=== PATIENT | male | born 1945 | race Caucasian/White ===

== ENCOUNTER 2018-10-23 11:20 | Inpatient (IN) | payer MEDICARE ==
[~2018-10-23] VITALS: Ht 170.2 cm; Wt 88.0 kg
[2018-10-23] MEDS ORDERED: AMLODIPINE5 MG PO (13:11)
[2018-10-23] MEDS ORDERED: CARVEDILOL25 MG PO (13:12)
[2018-10-23] MEDS ORDERED: CLOPIDOGREL75 MG PO (13:12)
[2018-10-23] MEDS ORDERED: B-12500 MC1 PO (13:13)
[2018-10-23] MEDS ORDERED: LISINOPRIL20 M1 PO (13:13)
[2018-10-23] MEDS ORDERED: VITAMIN D32000 UNIT PO (13:13)
[2018-10-23] MEDS ORDERED: LIPITOR20 M1 PO (13:14)
[2018-10-23] MEDS ORDERED: TYLENOL 8 HOUR650 MG (13:15)
[2018-10-23] MEDS ORDERED: NITROGLYCERIN0.4 MG (13:15)
[2018-11-02] VITALS (10 sets, daily range): BP systolic 141–177; BP diastolic 61–91
--- NOTE | 2018-11-02 11:56 | NUR ---
PT ARRIVED TO FLOOR VIA HOSPITAL BED IN STABLE CONDITION ACCOMPANIED BY OR STAFF MEMBER;PT ALERT AND ORIENTED, DROWSY AT THIS TIME;ORIENTED PT TO ROOM AND CALL LIGHT SYSTEM;PT IS POST OP LEFT TOTAL HIP ARTHRROPLASTY 11/02/18;VS OBTAINED AND ASSESSMENT COMPLETED;RESPIRATIONS EVEN AND UNLABORED ON O2 @ 2L VIA NC, CLEAR/DIMINISHED LUNG SOUNDS NOTED;SPOUSE TO BRING IN HOME CPAP;I.S. PROVIDED AND PT EDUCATED ON USE 10X PER HOUR;ABDOMEN DISTENDED/SOFT ON PALPATION AND ACTIVE IN ALL 4 QUADRANTS, LAST BM 11/02/18;STRONG PEDAL PULSES;LEFT HIP DRESSINGS CDI AND ICE PACKS PROVIDED;WEDGE PILLOW IN PLACE AND CAP REFILL LESS THAN 3 SECONDS;#22G TO LEFT FOREARM INFUSING LR @ 100ML/HR,SITE APPEARS HEALTHY;PT DENIES ANY CURRENT PAIN BUT DOES REPORT NAUSEA.PT TO BE MEDICATED WITH ZOFRAN 4MG IVP, PAIN SCALE AND REPORTING EDUCATED;PT DENIES ANY CURRENT NEEDS AT THIS TIME;FRESH WATER PROVIDED AND PT ENCOURAGED TO CALL FOR ASSISTANCE IF NEEDED;FALL PRECAUTIONS IN PLACE WITH CALL LIGHT IN REACH;WILL CONTINUE TO MONITOR
--- NOTE | 2018-11-02 16:30 | NUR ---
PT RESTING IN SEMI FOWLERS POSITION;RESPIRATIONS EVEN AND UNLABORED ON O2 @2L VIA NC;PT REPORTS MINIMAL PAIN TO LEFT HIP;PT REQUESTS TO AMBULATE WITH ASSISTANCE, PT AMBULATED NEXT TO BEDSIDE AND VOIDED 50CC OF CLEAR/YELLOW URINE INTO URINAL;PT RE-POSITIONED INTO RECLINER;IV FLUIDS CONTINUE TO INFUSE TO LFA WITH EASE;PT DENIES ANY ADDITIONAL NEEDS AT THIS TIME AND IS ENCOURAGED TO CALL FOR ASSISTANCE IF NEEDED;FALL PRECAUTIONS IN PLACE WITH CALL LIGHT IN REACH;WILL CONTINUE TO MONITOR
--- NOTE | 2018-11-02 16:53 | NUR ---
PHYSICAL THERAPY WORKING WITH PT.
--- NOTE | 2018-11-02 17:00 | NUR ---
PT HYPERTENSIVE WITH CURRENT BP 177/83 HR 75, ASYMPTOMATIC AT THIS TIME. NOTIFIED AND NO NEW ORDERS RECEIVED STATING "JUST LET HIM REST AND GIVE HIM PAIN MEDICATION IF HE IS HURTING";WILL CONTINUE TO MONITOR
--- NOTE | 2018-11-02 19:00 | NUR ---
RECEIVED REPORT FROM DAY NURSE. PT RESTING IN BED. NO NEEDS AT THIS TIME. CALL ANTUNEZ IN REACH. WILL CONTINUE TO MONITOR.
--- NOTE | 2018-11-02 20:42 | NUR ---
PT RESTING IN BED WATCHING TV. PT C/O 5/10 PAIN TO LEFT HIP, ALSO COMPLAINING OF SORE THROAT; EXPLAINED THAT HIS THROAT WOULD BE IRRITATED AFTER SURGERY PT VERBALIZES UNDERSTANDING, PROVIDED ICE CHIPS. PT STANDS WITH 1 ASSIST TO USE URINAL VOIDED CLEAR YELLOW URINE. PT AMBULATES TO NEARBY RECLINER. ASSESMENT COMPLETED A THTIS TIME. ABD IS DISTENDED AND FIRM. DRESSING TO HIP IS CDI, WEDGE BETWEEN LEGS AT THIS TIME. NO OTHER NEEDS AT THIS TIME. CALL ANTUNEZ IN REACH. WILL CONTINUE TO MONITOR.
--- NOTE | 2018-11-03 | NUR ---
PT RESTING IN CHAIR AT THIS TIME NO S/S OF DISTRESS NOTED. CALL ANTUNEZ IN REACH. WILL CONTINUE TO MONITOR.
--- NOTE | 2018-11-03 04:00 | NUR ---
PT SITTING ON THE EDGE OF THE BED. NO NEEDS A THIS TIME. CALL ANTUNEZ IN REACH. WILL CONTINUE TO MONITOR.
[2018-11-03 04:45] VITALS: BP 136/70
[2018-11-03 05:40] LABS: HEMATOCRIT 39.5 % (39.0-50.0); HEMOGLOBIN 13.1 g/dl (14.0-18.0)
[2018-11-03 07:43] VITALS: BP 155/74
--- NOTE | 2018-11-03 07:51 | NUR ---
FOUND PT WALKING IN THE ROOM WITH WEDGE PILLOW IN PLACE. ASSISTED PT TO SIT IN RECLINER WEDGE PILLOW WAS REMOVED. SAFETY PRECAUTIONS REINFORCED. PT VERBALIZED UNDERSTANDING. ASSESSMENT DONE. PT IS A&O X3. PT STATED PAIN IN HIP 5/10 MEDICATED PT WITH PERCOCET SEE EMAR. DRESSING IN LEFT HIP CDI. IVF INFUSING WELL. PT DENIES ANY OTHER NEEDS AT THIS TIME. CALL LIGHT IN REACH.
--- NOTE | 2018-11-03 10:55 | NUR ---
AND I ASSISTED PT TO USE THE URINAL. PT IS CONFUSE STATING HE WANT TO GET UP AND GO TO THE LIVING ROOM. ORIENT PT. WE ASSISTED PT BACK TO THE RECLINER. IN ROOM. CALL LIGHT IN REACH.
[2018-11-03 11:17] VITALS: BP 107/60
--- NOTE | 2018-11-03 11:46 | NUR ---
PT IS SITTING IN RECLINER EATING HIS LUNCH WITH NO S/S OF DISTRESS NOTED. IN ROOM. PT STATED PAIN IS 3/10 IN HIP AND DENIES PAIN MEDICATION. CALL LIGHT IN REACH.
--- NOTE | 2018-11-03 12:32 | NUR ---
SPOKE WITH NSG, WHO REPORTS PATIENT IS NOT CALLING FOR ASSISTANCE, FOLLOWING HIP PRECAUTIONS AND ATTEMPTING TO GET OOB BY HIMSELF. HE IS UP IN CHAIR WITH HIS PRESENT. VERBALLY AND VISUALLY REVIEWING HIP PRECAUTIONS AND IMPORTANCE OF CALLING FOR ASSISTANCE. PATIENT IS UNABLE TO KEEP HIS EYES OPEN OR REPEAT HIS INSTRUCTIONS. HE IS CONFUSED, ASKING WHO IS TALKING TO HIM, WHEN HE HEARS VOICES OUT IN THE [place]. NOT APPROPRIATELY ALERT FOR TX AT THIS TIME. HE STATES HE WAS NOT ABLE TO SLEEP ALL NIGHT. HIS STATES THAT IT WAS BECAUSE OF HIS ABDUCTOR PILLOW. WILL F/U AGAIN LATER IN THE AFTERNOON.
--- NOTE | 2018-11-03 13:45 | NUR ---
NOTIFIED DR. VASQUEZ THAT OLIVAS WAS PLACE BUT THERE IS BLOODY RED URINE NOTED. NO NEW ORDERS RECEIVED AT THIS TIME.
--- NOTE | 2018-11-03 15:00 | NUR ---
DR. VASQUEZ SPOKE WITH DR. SINGH FOR SURGERY FOR PT TOMORROW.
[2018-11-03 15:56] VITALS: BP 156/78
--- NOTE | 2018-11-03 16:12 | NUR ---
Patient seen this PM for gait training, gait belt applied prior to. Hip precautions reviewed, patient verbalized understanding. Sit to stand to walker from BSC done with verbal cues for UE push off from arm rest. Steady static standing balance is noted. Patient ambulated with step to gait pattern x 15 feet using standard walker and with CGA x 2. Verbal cues given for safety awareness and proper use of standard walker. Stand to sit to supine in bed done with mod. assist x 2 for bringing LE's up to bed and upper trunk control. HOB elevated, abduction pillow in place and call light reviewed and left in lap. Patient left resting comfortably in bed without questions or concerns.
--- NOTE | 2018-11-03 16:33 | NUR ---
NS IRRIGATION DONE ON OLIVAS PER ORDER. TWO MODREATED BLOOD CLOTS NOTED. PT PT TOLERATED WELL. BED ALARM IN PLACE FOR SAFETY. NOTIFIED DR. VASQUEZ RE:BLOOD CLOTS. NO NEW ORDERS RECEIVED AT THIS TIME.
[2018-11-03 19:30] VITALS: BP 118/66
--- NOTE | 2018-11-03 20:15 | NUR ---
RECEIVED A PHONE CALL FROM RADIOLOGIST FOR CT SCAN REPORTING THAT OLIVAS CATHETER BALLOON WAS IN THE URETHERA AND NEEDED TO BE REPOSITIONED. UPON ENTERING THE ROOM PT WAS IN RECLINER W/AIDE AT SIDE OBTAINING V/S. PT APPEARS SOMEWHAT AGITATED AND PULLING AT CATHETER. AIDE AND MYSELF INSTRUCTED THE PT TO STOP PULLING ON CATHETER. PT POSITIONED FOR OLIVAS CATHETER ACCESS AND BALLOON DEFLATED, CATHETER POSITIONED FOR PROPER BALLOON PLACEMENT AND REINFLATED. BLOODY URINE W/CLOTS DRAINED FROM CATHETER INSERTION SITE AND OBVIOUS CLOTS IN CATHETER DRAINAGE TUBE. CATHETER FLUSHED WITH LARGE BLOODY CLOTS REMOVED. WILL CONTINUE TO MONITOR CLOSELY.
--- NOTE | 2018-11-03 21:00 | NUR ---
PT ASSESSED AND MEDICATED ORDERS PROVIDE. ABD IS VERY DISTENDED AND CATHETER NOT DRAINING. ATTEMPTED TO FLUSH CATHETER BUT WAS UNABLE TO GET RETURN. BLADDER SCAN SHOWED 854CC. ADDITIONAL ATTEMPTS WERE MADE TO FLUSH WITH SOME RETURN AND BLOOD CLOTS IN ADDITION. CATHETER STILL APPEARS NOT TO BE DRAINING. AGAIN BLADDER SCANNED @564CC AND ABD DISTENDED. PT C/O PAIN. PHYSICIAN WILL BE NOTIFIED FOR ORDERS.
--- NOTE | 2018-11-03 21:45 | NUR ---
NOTIFIED DR. VASQUEZ OF CLOTS IN CATHETER. ORDERS RECEIVED FOR OLIVAS REMOVAL AND PLACEMENT OF THREE WAY CATHETER AND CBI STARTED. OLIVAS CATHETER REMOVED AND ATTEMPTS FOR THREE WAY CATHETER PLACEMENT UNSUCCESSFUL, WILL CALL FOR ASSISTANCE FROM ICU NURSE.
--- NOTE | 2018-11-03 23:45 | NUR ---
ICU NURSE WAS ABLE TO INSERT THREE WAY CATHETER, BUT CATHETER NOT DRAINING AND FLUSHES ARE UNSUCCESSFUL. NOTIFIED WHO INSTRUCTED CONSUMER LOAN UNDERWRITER TO CALL DR. PERALTA. UPON RECEIPT OF ORDERS FROM DR. PERALTA 20FR SILICON CATHETER WAS PLACED "TO DRAIN." CATHETER APPEARS TO BE DRAINING CLOUDY YELLOW URINE AT A SOW RATE. WILL CONTINUE TO MONITOR FOR OUTPUT.
[2018-11-04] VITALS (11 sets, daily range): BP systolic 96–161; BP diastolic 47–86
--- NOTE | 2018-11-04 01:45 | NUR ---
CATHETER IS DRAINING CLOUDY YELLOW URINE SLOWLY AT THIS TIME. PT IS RESTING IN BED W/BED ALARM ON AND AIDE AT PT SIDE FOR OBSERVATION. PT HAS BEEN VERY AGITATED, CONFUSED, TRYING TO GET OUT OF BED AND ATTEMPTING TO PULL ON CATHETER.
--- NOTE | 2018-11-04 02:10 | NUR ---
CATHETER BAG EMPTIED OF 275CC OF LIGHT YELLOW URINE. PT APPEARS MILDLY AGITATED, AIDE AT BEDSIDE.
--- NOTE | 2018-11-04 05:05 | NUR ---
AIDE AT BEDSIDE W/PT, PT IN RECLINER AT THIS TIME. AIDE IS CHANGING BEDDING. PT HAS BEEN CLEANED AND PROVIDED JENAE/CATHETER CARE AT THIS TIME. OLIVAS CATHETER EMPTIED OF 100CC OF DARK YELLOW URINE.
--- NOTE | 2018-11-04 05:23 | NUR ---
PT IS SLEEPING AT THIS TIME. BED ALARM ON.
[2018-11-04 05:45] LABS: HEMATOCRIT 36.8 % (39.0-50.0); HEMOGLOBIN 11.8 g/dl (14.0-18.0); IMMATURE GRANULOCYTES 0.4 % (0.0-5.0); MEAN CORPUSCULAR HGB 28.9 pG CALC (26.0-32.0); MEAN CORPUSCULAR HGB CONC 32.1 g/L CALC (32.0-36.0); NEUT# 8.48 thou/uL (1.82-7.42); RED BLOOD COUNT 4.09 mill/uL (4.70-6.10); RED CELL DISTRI WIDTH 14.2 % (11.5-15.5)
[2018-11-04 06:06] LABS: ALBUMIN 3.2 g/dL (3.2-5.0); ALKALINE PHOSPHATASE 47 u/l (38-126); ANION GAP 14 (6-22 (CALC)); BILIRUBIN, TOTAL 0.7 mg/dL (0.0-1.4); BUN 31 mg/dL (8-23); BUN/CREATININE RATIO 19 (12-20 (CALC)); CARBON DIOXIDE 22 mmol/l (22-30); CHLORIDE 103 mmol/l (95-108); CREATININE 1.6 mg/dL (0.7-1.3); GFR 43 ML/MIN (>=60 (CALC)); GFR FOR AFR.AMER. 52 ML/MIN (>=60 (CALC)); LIPASE 14 u/l (23-300); MAGNESIUM 1.9 mg/dL (1.6-2.3); POTASSIUM 4.5 mmol/l (3.5-5.1); SGOT/AST 34 u/l (19-48); SODIUM 134 mmol/l (137-146); TOTAL PROTEIN 5.4 g/dL (6.3-8.2)
[2018-11-04 06:12] LABS: AMYLASE < 30 u/l (30-110)
--- NOTE | 2018-11-04 08:21 | NUR ---
REPORT WAS RECEIVED BY FROM HELENA. PT IS SITTING IN RECLINER. ASSESSMENT DONE. PT IS A&O X3 AT THIS TIME. PT STATED PAIN IN HIP 3/ BUT DENIES PAIN MEDICATION AT THIS TIME. DRESSING IN LEFT HIP CDI. OLIVAS IS PATENT WITH YELLOW URINE NOTED. PT SIGN CONSENT FOR SURGERY AND IN ROOM. CALL LIGHT IN REACH.
--- NOTE | 2018-11-04 10:58 | NUR ---
NOTIFIED RE: PT TEMP OF 100.1 AND THAT I DID NOT GAVE PT BP MEDS DUE TO BP OF 96/56. NO NEW ORDERS RECEIVED AT THIS TIME.
--- NOTE | 2018-11-04 11:40 | NUR ---
PT IS SLEEPING IN RECLINER WITH NO S/S OF DISTRESS NOTED. BED ALARM IN PLACE FOR SAFETY. CALL LIGHT IN REACH.
--- NOTE | 2018-11-04 12:43 | NUR ---
PATIENT IS UP IN RECLINER WITH AT SIDE. HE IS ALERT AND ORIENTED TODAY. RECLINE TO SIT INDEP. SIT TO STAND WITH MIN A TO WALKER. PATIENT AMB WITH STEP TO GAIT PATTERN AND V.C'S FOR PROPER SEQUENCE AND MAINTAINING FABIO IN WALKER. HE WAS ABLE TO AMB 75 FEET WITH SBA. ENCOURAGED TO TURN TO RIGHT TO MAINTAIN HIP PRECAUTIONS, WHICH WERE REVIEWED. PATIENT DEMONSTRATES GOOD UNDERSTANDING OF SAME. STAND TO SIT WITH V.C.'S TO MAINTAIN PRECAUTIONS. RECLINED IN CHAIR WITH PILLOW FOR ABDUCTION. CHAIR ALARM REPLACED, CALL ANTUNZE AND TRAY TABLE IN REACH. TOLERATED WELL. PATIENT IS IN AGREEMENT FOR SHORT TERM REHAB. HE IS SCHEDULED FOR CYSTOSCOPY THIS AFTERNOON.
--- NOTE | 2018-11-04 14:07 | NUR ---
Pt seen this pm for treatment. Nursing reported he was NPO awaiting a procedure. Pt agreed to treatment. LLE A/AAROM ex performed in recliner, reclined and sitting x 20 reps each within JAMEY guidelines. Pt hip precautions reviewed. Pt moved sit to and from stand with CGA/min assist. He ambulated x 100' 1/2 with standard walker and 1/2 with RW. Pt gait pattern much improved with RW. Verbal instructions with gait pattern required. Pt was left in chair with , who stated she would put alarm on and do any set up reequired. .
--- NOTE | 2018-11-04 14:35 | NUR ---
PT IS SITTING IN THE SIDE OF THE BED. X2 PERSON ASSISTED PT TO THE STRETCHER. PT WENT TO OR VIA STRETCHER BY JEWEL DODD.
--- NOTE | 2018-11-04 17:40 | NUR ---
PT CAME FROM OR VIA STRETCHER. REPORT RECEIVED FROM STEPH. PT DENIES PAIN AT THIS TIME. CBI INFUING WELL WITH PEACH COLOR AND NO BLOOD CLOTS NOTED IN OLIVAS. PT DENIES ANY NEEDS AT THIS TIME. CALL LIGHT IN REACH AND BED ALARM IN PLACE FOR SAFETY.
--- NOTE | 2018-11-04 19:00 | NUR ---
REPORT RECIEVED FROM JEWEL PALMER. PT RESTING IN BED. ALERT AND ORIENTED. RESPIRATIONS EVEN AND UNLABORED. PT REPORT HAVING PAIN OF A 5 OUT OF 10, TO BE MEDICATED. SAFETY PRECAUTIONS IN PLACE. WILL CONTINUE TO MONITOR.
--- NOTE | 2018-11-04 23:50 | NUR ---
PT FOUND SITTING NAKED ON THE FLOOR, BED ALARM ATTACHED TO GOWN. PT STATES " I SLID OUT OF BED". WRITTER CALLED FOR ASSISTANCE. PT X4 ASSIST BACK INTO BED. NO NEW INJURIES NOTED. PT STATED " I WAS DREAMING ABOUT GETTING OUT OF BED AND SLID DOWN TO THE FLOOR". WRITTER ASKED PT IF HE SLID QUICKLY OR SLOWLY TO THE FLOOR PT REPLIED "SLOWLY". PT DENIES ANY NEW PAIN. VS OBTAINED. TO BE NOTIFIED. JOB SERVICE CONSULTANT [place] TO BE NOTIFIED. SAFETY PRECAUTIONS IN PLACE WILL CONTINUE TO MONITOR.
[2018-11-05] VITALS (7 sets, daily range): BP systolic 101–150; BP diastolic 56–66
--- NOTE | 2018-11-05 00:05 | NUR ---
DR VASQUEZ NOTIFIED ABOUT PT BEING FOUND ON FLOOR. NEW ORDERS FOR ONE ON ONE SITTER OBTAINED.
[2018-11-05 06:18] LABS: ALBUMIN 2.8 g/dL (3.2-5.0); BUN 22 mg/dL (8-23); CARBON DIOXIDE 24 mmol/l (22-30); CHLORIDE 109 mmol/l (95-108); CREATININE 0.9 mg/dL (0.7-1.3); GFR > 60 ML/MIN (>=60 (CALC)); GFR FOR AFR.AMER. > 60 ML/MIN (>=60 (CALC)); POTASSIUM 3.8 mmol/l (3.5-5.1)
[2018-11-05 06:19] LABS: SODIUM 141 mmol/l (137-146)
--- NOTE | 2018-11-05 07:05 | NUR ---
REPORT RECEIVED FROM JEWEL BARAKAT;PT APPEARS TO BE SLEEPING IN SEMI FOWLERS POSITION WITH DELORIS SUMNER AT BEDSIDE SITTER;RESPIRATIONS EVEN AND UNLABORED ON O2 @ 2L VIA NC;NO S/S OF DISTRESS NOTED;CBI INFUSING WITH EASE, CURRENTLY ON BAG #5.OUTPUT PEACH/CLEAR IN COLOR;IV FLUIDS INFUSING TO LFA;FALL PRECAUTIONS NOTED WITH BED IN THE LOWEST POSITION AND CALL LIGHT IN REACH;WILL CONTINUE TO MONITOR
--- NOTE | 2018-11-05 08:35 | NUR ---
PT RESTING IN SEMI FOWLERS POSITION WITH SPOUSE AT BEDSIDE;ALERT AND ORIENTED X2, DROWSY AND RESTLESS;PT ATTEMPTING MULTIPLE TIMES TO GET OUT OF BED, ATTEMPTED TO RE-ORIENT PATIENT AND RE-POSITION FOR COMFORT;VS OBTAINED AND ASSESSMENT COMPLETED;RESPIRATIONS SHALLOW ON RA, I.S. AT BEDSIDE AND EDUCATED ON USE 10X PER HOUR;ABDOMEN DISTENDED/FIRM ON PALPATION AND HYPERACTIVE IN ALL 4 QUADRANTS;STRONG PEDAL PULSES, SCD'S IN PLACE;PT IS POST OP DAY #3 LEFT TOTAL HIP ARTHROPLASTY, INCISIONAL SITE WELL APPROX WITH SLIGHT REDDNESS NOTED;CBI INFUSING AT A TITRATED RATE WITH EASE CURRENTLY ON BAG #5, OUTPUT RED/PEACH AT THIS TIME.SCROTUM SLIGHTLY EDEMATOUS.LEG STRAP IN PLACE;#20G TO LEFT FOREARM INFUSING NS @ 125ML/HR,SITE APPEARS HEALTHY;PHYSICAL THERAPY TO HELP PT OUT OF BED AND INTO RECLINER PER REQUEST;PO FLUIDS ENCOURAGED;FALL PRECAUTIONS IN PLACE WITH BED ALARM ON FOR SAFETY;CALL LIGHT IN REACH;WILL CONTINUE TO MONITOR
[2018-11-05 08:51] LABS: HEMATOCRIT 32.4 % (39.0-50.0); HEMOGLOBIN 10.5 g/dl (14.0-18.0)
--- NOTE | 2018-11-05 09:00 | NUR ---
PHYSICAL THERAPY WORKING WITH PT TO RE-POSITION INTO RECLINER.
--- NOTE | 2018-11-05 11:18 | NUR ---
PT OOB RESTING IN RECLINER WITH SPOUSE AND AT BEDSIDE DISCUSSING POC;RESPIRATIONS EVEN AND UNLABORED,SHALLOW ON RA;PT DENIES ANY CURRENT PAIN OR NEEDS;CBI INFUSING WITH EASE WITH PEACH OUTPUT NOTED, REMAINS ON BAG #5;IV SITE PATENT TO LEFT FOREARM;PT DENIES ANY ADDITIONAL NEEDS AT THIS TIME;FALL PRECAUTIONS IN PLACE WITH BED ALARM ON FOR SAFETY;CALL LIGHT IN REACH;WILL CONTINUE TO MONITOR
--- NOTE | 2018-11-05 12:24 | NUR ---
CBI DISCONTINUED AT THIS TIME PER ORDER.URINE PEACH/CLEAR IN COLOR AT THIS TIME.
--- NOTE | 2018-11-05 15:13 | NUR ---
Patient found resting in recliner, when questioned he denies hip pain. Patient in agreement to participate in gait training. Sit to stand to RW done with light CGA x1 and verbal cues for UE push off from arm rests. Patient ambulated 2 x [address] using RW and with CGA x1. Patient demonstrated short step on left and is slow and steady. Verbal cues also provided for pursed lip breathing technique. Upon returning to recliner patient remembered to reach back for armrest to slowly lower. LE's elevated in recliner. Patient was without questions or concerns, no SOB. Call light reviewed and left within reach.
--- NOTE | 2018-11-05 15:26 | NUR ---
PT APPEARS TO BE SLEEPING IN RECLINER WITH SPOUSE AT BEDSIDE;RESPIRATIONS EVEN AND UNLABORED ON RA;NO S/S OF DISTRESS NOTED;OLIVAS CATHETER PATENT DRAINING RED/CLEAR OUTPUT AFTER AMBULATION WITH PHYSICAL THERAPY;IV SITE TO LEFT FOREARM PATENT;ALL SAFETY PRECAUTIONS REMAIN IN PLACE WITH BED ALARM ON FOR SAFETY;CALL LIGHT IN REACH;WILL CONTINUE TO MONITOR
--- NOTE | 2018-11-05 19:00 | NUR ---
REPORT RECEIVED FROM ZOILA ALEXANDER. PT RESTING IN RECLINER AT BEDSIDE. OLIVAS IN PLACE DRAINING TO GRAVITY. PT REFUSING TO USE THE CALL ANTUNEZ FOR ASSISTANCE. PT REPEATEDLY SETTING BED ALARM OFF GETTING UP TO BSC. SAFETY PRECAUTIONS IN PLACE, WILL CONTINUE TO MONITOR.
--- NOTE | 2018-11-05 19:30 | NUR ---
PT ASKED FOR ASSISTANCE GETTING HER ON THE BSC. WRITTER ASSISTED PT TO BSC AND CHANGED SOILED LINEN. PT AND DENIED FURTHER NEEDS AT THIS TIME. SAFETY PRECAUTIONS IN PLACE. WILL CONTINUE TO MONITOR.
--- NOTE | 2018-11-05 23:13 | NUR ---
PT RESTING IN RECLINER AT BEDSIDE. BIPAP IN PLACE. OLIVAS DRAINING TO GRAVITY. SAFETY PRECAUTIONS IN PLACE. WILL CONTINUE TO MONITOR.
--- NOTE | 2018-11-06 00:40 | NUR ---
PT IN NEED OF ASSISTANCE TO BSC. ZOILA MONTEJO AND CORRINE WENT IN TO ASSIST PT. WHEN TRYING TO ASSIST PT HE YELLED AT WRITTER " DON'T TOUCH ME".NIKIA ASSISTED PT TO BSC. PT YELLED "WHY ARE YOU IN HERE, [facility] IS A [facility]!" NIKIA ASKED PT IF HE KNEW WHERE HE WAS PT ANSWERED " [facility]" WHEN CORRINE ASKED WHAT THE PT DIDN'T LIKE ABOUT THE CARE HE WAS RECEIVING, PT YELLED AT WRITTER " DON'T TALK TO ME, I'M NOT TALKING TO YOU" NIKIA OFFERED TO GET THE TITRATOR FOR PT, HE REPLIED " I DON'T WANT TO TALK TO THE TITRATOR" PT ASKED " WHAT IF I WANTED TO LEAVE" PT EDUCATED AT THIS TIME.
--- NOTE | 2018-11-06 00:55 | NUR ---
PT REPORTS HAVING PAIN WHEN BRINGING HIM HIS PAIN MEDICATION PT STATES " I DON'T WANT ANYTHING FROM YOU!" ZOILA MONTEJO IN THE DOORWAY ASKED PT IF WANTED HER TO GIVE HIM THE MEDICATION PT STATEED HE PREFERRED HER TO GIVE THE MEDICATION.
--- NOTE | 2018-11-06 04:36 | NUR ---
PT RESTING IN RECLINER. NO SIGNS OR SYMPTOMS OF DISTRESS AT THIS TIME. WILL CONTINUE TO MONITOR.
[2018-11-06 05:33] VITALS: BP 123/61
[2018-11-06 05:34] LABS: HEMATOCRIT 33.1 % (39.0-50.0); HEMOGLOBIN 10.6 g/dl (14.0-18.0); IMMATURE GRANULOCYTES 1.6 % (0.0-5.0); MEAN CELL VOLUME 91.9 fL CALC (80.0-100.0); MEAN CORPUSCULAR HGB 29.4 pG CALC (26.0-32.0); RED BLOOD COUNT 3.6 mill/uL (4.70-6.10); RED CELL DISTRI WIDTH 14.6 % (11.5-15.5)
[2018-11-06 05:52] LABS: ALBUMIN 2.9 g/dL (3.2-5.0); ALKALINE PHOSPHATASE 62 u/l (38-126); ANION GAP 11 (6-22 (CALC)); BILIRUBIN, TOTAL 0.7 mg/dL (0.0-1.4); BUN 21 mg/dL (8-23); BUN/CREATININE RATIO 24 (12-20 (CALC)); CARBON DIOXIDE 26 mmol/l (22-30); CHLORIDE 108 mmol/l (95-108); CREATININE 0.9 mg/dL (0.7-1.3); GFR > 60 ML/MIN (>=60 (CALC)); GFR FOR AFR.AMER. > 60 ML/MIN (>=60 (CALC)); POTASSIUM 3.7 mmol/l (3.5-5.1); SGOT/AST 49 u/l (19-48); SODIUM 142 mmol/l (137-146); TOTAL PROTEIN 5.1 g/dL (6.3-8.2)
[2018-11-06 07:28] VITALS: BP 135/70
--- NOTE | 2018-11-06 07:42 | NUR ---
11/05/18 AM note Patient pleasantly confused. He gets OOB with mod assist of 1-2 and ambulates with shortened stride length and FWW x 30 feet. He worked on safety includinig stand to sit and his mentation appears to be improving. Am Pac score is unchanged and we recommend Swing Bed for DC
--- NOTE | 2018-11-06 07:55 | NUR ---
PT IS SITTING IN RECLINER. ASSESSMENT DONE. PT IS ALERT TO SELF. 20 LAC THAT APPEARS HEALTHY. PT DENIES PAIN AT THIS TIME. PT DENIES ANY OTHER NEEDS AT THIS TIME. PT IS SETUP TO EAT HIS BREAKFAST. IN ROOM. CALL LIGHT IN REACH.
[2018-11-06 08:22] LABS: URINE BILIRUBIN - DIPSTICK NEGATIVE (NEGATIVE); URINE BLOOD DIPSTICK LARGE (NEGATIVE); URINE COLOR YELLOW; URINE GLUCOSE - DIPSTICK NEGATIVE (NEGATIVE); URINE KETONE NEGATIVE (NEGATIVE); URINE LEUK ESTERASE TRACE (Negative); URINE NITRITE - DIPSTICK NEGATIVE (Negative); URINE PROTEIN - DIPSTICK 100 mg/dL (NEG-TRACE); URINE UROBILINOGEN - DIPSTICK 0.2 E.U./dL (0.2)
[2018-11-06 08:24] LABS: URINE CLARITY SL CLOUDY
[2018-11-06 08:34] LABS: URINE RBC >100 RBC/hpf (0-5)
--- NOTE | 2018-11-06 09:26 | NUR ---
Mr Smith was in bathroom as therapist arrived. Sit to stand from toilette seat (Min A) ambulated to reclining chair x 15 feet(CGA) with RW, patient had short stride length , VC to increase, Sit to stand(MIN A) VC for correct hand placement as patient descended to a seated position, VC for increased awareness for hip percautions not to cross 90 deg flexion. Patient then needed to go to bathroom, sit to stand (Min A) with VC for extension of leg as he ascends to standing position also VC for correct hand placement on arm rest and not walker. Ambulated 15 feet (CGA) w/ RW to toilette as he did stand to sit (MIN A) Vc for correct hand placement as he descends to a seated position. was in room while patient was in bathroom, nurses were notified that pt. was in bathroom also as theraoist exited room.
--- NOTE | 2018-11-06 11:32 | NUR ---
PT IS SITTING IN THE RECLINER RESTING WITH NO S/S OF DISTRESS NOTED. PT DENIES ANY NEEDS AT THIS TIME. BED ALARM IN PLACE FOR SAFETY.
--- NOTE | 2018-11-06 12:50 | NUR ---
DR. VASQUEZ IN ROOM TO DISCUSS POC WITH PT AND .
--- NOTE | 2018-11-06 14:02 | NUR ---
Pt seen this pm for treatment. He was in chair trying to shave. His reported possible transfer to Rehab today (checked with inventory planner) Returned to room, pt to BR with RW and min assist, commde chair was placed over toilet. stated he had 3 laxatives. Pt ambulated 1 x 150' with RW and verbal cue for gait pattern, CGA with gait belt and non skid sock. Pt returned to room and headed right back into BR. Pt left in care of his . Ther ex not done, secondary to mult BR trips. Written precautions given to pt for JAMEY.
--- NOTE | 2018-11-06 14:23 | NUR ---
NOTIFIED DR. VASQUEZ RE: PT HAVING A LARGE BLISTER IN LEFT FOOT AND KYLE IN THE LEG. ALSO, THAT PENIS IS SWOLLEN AND I ELEVATED PENIS. NO NEW ORDERS RECEIVED AT THIS TIME. CALL LIGHT IN REACH. BED ALARM IN PLACE.
--- NOTE | 2018-11-06 16:02 | NUR ---
PT IS SITTING IN RECLINER . MEDICATED PT WITH PERCOCET FOR PAIN IN LEFT HIP 11/04. PT IS A&O X3. IN ROOM. CALL LIGHT IN REACH.
[2018-11-06 16:35] VITALS: BP 122/71
--- NOTE | 2018-11-06 19:00 | NUR ---
RECIEVED REPORT FROM DAY NURSE. PT RESTING IN THE RECLINER. WITH BED ALARM IN PLACE. WILL CONTINUE TO MONITOR.
[2018-11-06 19:45] VITALS: BP 114/52
--- NOTE | 2018-11-06 21:30 | NUR ---
PT RESTING IN THE RECLINER WITH EYES CLOSED. BED ALARM IN PLACE. PT IS ALERT AND ORIENTED AT THIS TIME. HAS SET BED ALARM OFF ONCE BECAUSE HE NEEDED TO HAVE A BM, CALL ANTUNEZ USE REINFORCED. WALKS TO BATHROOM WITH UNSTEADY GAIT WITH WALKER 1 ASSIST. ASSESMENT COMPLETED AT THIS TIME. PT HAS DERMABOND TO LEFT HIP IN PLACE. SMALL BLISTER TO AREA. 4 BLISTER NOTED TO LOZANO, 2 TO ANKLE AND 1 LARGE BLOOD FILLED 1 TO THE FOOT ON LEFT SIDE EDEMA NOTED. CPAP IN PLACE. NO OTHER NEEDS AT THIS TIME. CALL ANTUNEZ IN REACH. WILL CONTINUE TO MONITOR.
--- NOTE | 2018-11-07 00:17 | NUR ---
PT SET OFF BED ALARM. NEEDS TO HAVE A BM AT THIS TIME. 1 ASSIT TO RESTROOM. WILL CONTINUE TO MONITOR.
--- NOTE | 2018-11-07 02:15 | NUR ---
PT SET OFF BED ALARM DUE TO REPOSTIONING. NO NEEDS AT THIS TIME. CALL ANTUNEZ IN REACH. WILL CONTINUE TO MONITOR.
--- NOTE | 2018-11-07 04:00 | NUR ---
PT APPEARS ASLEEP AT THIS TIME. CPAP IN PLACE NO S/S OF DISTRESS NOTED. BED ALARM IN PLACE. WILL CONTINUE TO MONITOR.
[2018-11-07 04:36] VITALS: BP 135/69
[2018-11-07 09:05] VITALS: BP 141/66
--- NOTE | 2018-11-07 12:21 | NUR ---
SHIFT CHANGE REPORT, PT AWAKE ALERT AND ORIENTED SITTING UP IN RECLINER, REQUESTED ASSISTANCE FOR BRP AND FOR MAINTANCE FOR PERSONAL ELECTRICAL EQUIPMENT, STAFF IN ROOM WITHPT FOR AT LEAST 40 MINS ADDRESSING HIS NEEDS IN HIS OWN TIME AND OWN WAY UNTIL SPOUSE ARRIVED AND TOOK OVER. FLUID FILLED BLISTERS OBSERVED ON LEFT FOOT AND ARE SPREADING THE HOURS GO BY, PENIS AND SCROTUM ARE EDEMATOUS AND SCROTUM ELEVATED, OLIVAS CATHETER IN PLACE WITH BLOOD-TINGED SCOTTY URINE AND TINY CLOTS, WILL CONTINUE TO MONITOR.
--- NOTE | 2018-11-07 12:27 | NUR ---
SIRRING UP IN RECLINER HAVING MEAL, ALL NEEDS ADDRESSED.
--- NOTE | 2018-11-07 16:08 | NUR ---
SLEEPING IN RECLINER WITH C-BRO IN PLACE, APPEARS COMFORTABLE WITH NON-LABORED BREATHING.
[2018-11-07 17:40] VITALS: BP 116/59
--- NOTE | 2018-11-07 19:00 | NUR ---
RECIEVED REPORT FROM DAY SHIFT NURSE. PT RESTING IN THE RECLINER AT THIS TIME. NO NEEDS AT THIS TIME. CALL ANTUNEZ IN REACH WILL CONTINUE TO MONITOR.
[2018-11-07 19:48] VITALS: BP 142/67
--- NOTE | 2018-11-07 22:20 | NUR ---
PT RESTING IN THE RECLINER WATCHING TV. ASSESMENT COMPLETED AT THIS TIME. OLIVAS DRAINING DARK SCOTTY URINE. PT HAS EDEMA TO SCROTUM AND PENIS. LEFT LEG DERMABOND IN PLACE. MULTIPLE DARK FLUID FILLED BLISTERS ALONG LOZANO, ANKLE AND TOP OF FOOT. PT UP TO RESTROOM WITH INTERVENTIONAL RADIOLOGY TECHNOLOGIST AT THIS TIME.WILL CONTINUE TO MONITOR.
--- NOTE | 2018-11-08 | NUR ---
PT RESTING IN THE RECLINER. COAO IN PLACE. NO S/S OF DISTRESS. BED ALARM IN PLACE. WILL CONTINUE TO MONITOR.
[2018-11-08 04:31] VITALS: BP 123/69
--- NOTE | 2018-11-08 05:00 | NUR ---
PT RESTING IN RECLINER. PEDICURIST TO CHECK ON LEGS. BLISTER TO ANKLE AND 1 TO LOZANO HAS POPPED AND IS LEAKED TEA COLORED FLUID. FLOOR CLEANED AND PTS LEG CLEAN AND PAD CHANGED. NO NEEDS AT THIS TIME. CALL ANTUNEZ IN REACH. BED ALARM IN PLACE. WILL CONTINUE TO MONITOR
[2018-11-08 05:19] LABS: HEMATOCRIT 34.5 % (39.0-50.0); HEMOGLOBIN 10.9 g/dl (14.0-18.0); IMMATURE GRANULOCYTES 0.5 % (0.0-5.0); MEAN CELL VOLUME 90.8 fL CALC (80.0-100.0); MEAN CORPUSCULAR HGB 28.7 pG CALC (26.0-32.0); MEAN CORPUSCULAR HGB CONC 31.6 g/L CALC (32.0-36.0); NEUT# 3.66 thou/uL (1.82-7.42); RED BLOOD COUNT 3.8 mill/uL (4.70-6.10); RED CELL DISTRI WIDTH 14.4 % (11.5-15.5)
[2018-11-08 05:53] LABS: ANION GAP 13 (6-22 (CALC)); BUN 17 mg/dL (8-23); BUN/CREATININE RATIO 20 (12-20 (CALC)); CARBON DIOXIDE 25 mmol/l (22-30); CHLORIDE 108 mmol/l (95-108); CREATININE 0.9 mg/dL (0.7-1.3); GFR > 60 ML/MIN (>=60 (CALC)); GFR FOR AFR.AMER. > 60 ML/MIN (>=60 (CALC)); POTASSIUM 3.7 mmol/l (3.5-5.1); SODIUM 142 mmol/l (137-146)
--- NOTE | 2018-11-08 07:00 | NUR ---
SHIFT CHANGE REPORT, PT AWAKE ALERT AND ORIENTED SITTING UP IN RECLINER, NO C/O DISCOMFORT AT THIS TIME, OLIVAS CATHETER IN PLACE WITH SCOTTY URINE, FLUID FILLED BLISTERS LARGER THIS AM AND SPREADING ON LEFT LEG, SOME DRAINING TEA-COLORED FLUID. CALL ANTUNEZ IN REACH, WILL CONTINUE TO MONITOR.
[2018-11-08 08:27] VITALS: BP 140/53
[2018-11-08 08:37] VITALS: BP 140/53
--- NOTE | 2018-11-08 11:06 | NUR ---
OLIVAS AND JENAE CARE GIVEN, PENIS&SCROTUM ELEVATED.
[2018-11-08] MEDS ORDERED: PERCOCET 10/31 COMBO PO (12:31)
--- NOTE | 2018-11-08 14:46 | NUR ---
NURSE-NURSE REPORT GIVEN TO CONNER AT [facility], PT IS STILL HERE AWAITING TRANSPORTATION.
--- NOTE | 2018-11-08 15:09 | NUR ---
Discharge instructions given. Patient verbalizes understanding of same. Discharged in stable condition via [facility] with *Other. All belongings sent with pt.
== END 2018-11-08 15:05 | DRG 470 ==
LOC: MS2 11-02 06:21
PROVIDERS: Internal Medicine Nephrology; Nurse Practitioner Family; ADMIT Orthopaedic Surgery; ATTEND Internal Medicine Nephrology
PROC: 0SRB0JA Replacement of Left Hip Joint with Synthetic Substitute, Uncemented, Open Approach (ICD-10-PCS; principal; 2018-11-02)
PROC: 0T9B70Z Drainage of Bladder with Drainage Device, Via Natural or Artificial Opening (ICD-10-PCS; 2018-11-03)
PROC: 0W3R8ZZ Control Bleeding in Genitourinary Tract, Via Natural or Artificial Opening Endoscopic (ICD-10-PCS; 2018-11-04)
PROC: 0TCB8ZZ Extirpation of Matter from Bladder, Via Natural or Artificial Opening Endoscopic (ICD-10-PCS; 2018-11-04)
PROC: 0TCD8ZZ Extirpation of Matter from Urethra, Via Natural or Artificial Opening Endoscopic (ICD-10-PCS; 2018-11-04)
DX: M16.12 Unilateral primary osteoarthritis, left hip (principal); E87.1 Hypo-osmolality and hyponatremia; N13.8 Other obstructive and reflux uropathy; N17.9 Acute kidney failure, unspecified; S37.33XA Laceration of urethra, initial encounter; I12.9 Hypertensive chronic kidney disease with stage 1 through stage 4 chronic kidney disease, or unspecified chronic kidney disease; N18.3 Chronic kidney disease, stage 3 (moderate); I25.10 Atherosclerotic heart disease of native coronary artery without angina pectoris; E78.5 Hyperlipidemia, unspecified; K59.00 Constipation, unspecified; D64.9 Anemia, unspecified; R33.8 Other retention of urine; N40.1 Benign prostatic hyperplasia with lower urinary tract symptoms; N42.1 Congestion and hemorrhage of prostate; N20.0 Calculus of kidney; R41.0 Disorientation, unspecified; R23.8 Other skin changes; X58.XXXA Exposure to other specified factors, initial encounter; Y92.230 Patient room in hospital as the place of occurrence of the external cause; Z72.89 Other problems related to lifestyle; Z79.02 Long term (current) use of antithrombotics/antiplatelets; Z95.5 Presence of coronary angioplasty implant and graft
CPT/HCPCS: J0131; J2710

== ENCOUNTER 2018-12-16 09:00 | Emergency (ER) | payer MEDICARE ==
[~2018-12-16] VITALS: Ht 170.2 cm; Wt 90.0 kg
[~2018-12-16 09:00] MED LIST: AMLODIPINE5 MG PO; B-12500 MC1 PO; CARVEDILOL25 MG PO; CLOPIDOGREL75 MG PO; LIPITOR20 M1 PO; LISINOPRIL20 M1 PO; NITROGLYCERIN0.4 MG; PERCOCET 10/31 COMBO PO; TYLENOL 8 HOUR650 MG; VITAMIN D32000 UNIT PO
[2018-12-16 16:00] VITALS: BP 153/74
== END 2018-12-16 16:13 | disposition home or self-care (01) ==
LOC: ED 09:00
PROC: 0SWBXJZ Revision of Synthetic Substitute in Left Hip Joint, External Approach (ICD-10-PCS; principal; 2018-12-16)
DX: T84.021A Dislocation of internal left hip prosthesis, initial encounter (principal); I10 Essential (primary) hypertension; Y83.1 Surgical operation with implant of artificial internal device as the cause of abnormal reaction of the patient, or of later complication, without mention of misadventure at the time of the procedure; Y92.002 Bathroom of unspecified non-institutional (private) residence as the place of occurrence of the external cause; Z96.642 Presence of left artificial hip joint

== ENCOUNTER 2019-09-16 08:58 | Inpatient (IN) | payer MEDICARE ==
[~2019-09-16] VITALS: Ht 170.2 cm; Wt 88.9 kg
[2019-09-16 10:01] LABS: HEMATOCRIT 48.1 % (39.0-50.0); HEMOGLOBIN 15.8 g/dl (14.0-18.0); IMMATURE GRANULOCYTES 0.4 % (0.0-5.0); MEAN CELL VOLUME 86.2 fL CALC (80.0-100.0); MEAN CORPUSCULAR HGB 28.3 pG CALC (26.0-32.0); MEAN CORPUSCULAR HGB CONC 32.8 g/L CALC (32.0-36.0); NEUT# 8.45 thou/uL (1.82-7.42); RED BLOOD COUNT 5.58 mill/uL (4.70-6.10); RED CELL DISTRI WIDTH 13.6 % (11.5-15.5)
[2019-09-16 10:23] LABS: ALBUMIN 4.6 g/dL (3.2-5.0); ALKALINE PHOSPHATASE 68 u/l (38-126); AMYLASE 49 u/l (30-110); ANION GAP 17 (6-22 (CALC)); BILIRUBIN, TOTAL 0.8 mg/dL (0.0-1.4); BUN 45 mg/dL (8-23); BUN/CREATININE RATIO 19 (12-20 (CALC)); CARBON DIOXIDE 18 mmol/l (22-30); CHLORIDE 101 mmol/l (95-108); CREATININE 2.4 mg/dL (0.7-1.3); GFR 27 ML/MIN (>=60 (CALC)); GFR FOR AFR.AMER. 32 ML/MIN (>=60 (CALC)); LIPASE 61 u/l (23-300); POTASSIUM 4.7 mmol/l (3.5-5.1); SGOT/AST 32 u/l (19-48); SODIUM 131 mmol/l (137-146); TOTAL PROTEIN 7.5 g/dL (6.3-8.2)
[2019-09-16 10:35] LABS: MYOGLOBIN 150 ng/mL (0 - 121)
[2019-09-16 11:28] LABS: URINE BLOOD DIPSTICK NEGATIVE (NEGATIVE); URINE COLOR YELLOW; URINE GLUCOSE - DIPSTICK NEGATIVE (NEGATIVE); URINE KETONE NEGATIVE (NEGATIVE); URINE LEUK ESTERASE NEGATIVE (NEGATIVE); URINE NITRITE - DIPSTICK NEGATIVE (Negative); URINE PROTEIN - DIPSTICK 100 mg/dL (NEG-TRACE); URINE SPECIFIC GRAVITY >=1.030; URINE UROBILINOGEN - DIPSTICK 0.2 E.U./dL (0.2)
[2019-09-16 12:47] LABS: URINE BILIRUBIN - DIPSTICK SMALL (NEGATIVE)
[2019-09-16 13:08] LABS: URINE SQUAMOUS EPITHELIAL CELL FEW EPI/hpf (0-FEW)
[2019-09-16 14:47] VITALS: BP 103/55
[2019-09-16 20:35] VITALS: BP 121/59
[2019-09-16 23:50] VITALS: BP 134/74
[2019-09-17 03:40] VITALS: BP 127/58
[2019-09-17 05:35] LABS: MEAN CELL VOLUME 85.9 fL CALC (80.0-100.0); MEAN CORPUSCULAR HGB 28.3 pG CALC (26.0-32.0); MEAN CORPUSCULAR HGB CONC 32.9 g/L CALC (32.0-36.0); RED BLOOD COUNT 4.88 mill/uL (4.70-6.10); RED CELL DISTRI WIDTH 13.8 % (11.5-15.5)
[2019-09-17 05:44] LABS: ANION GAP 11 (6-22 (CALC)); BUN 34 mg/dL (8-23); CARBON DIOXIDE 20 mmol/l (22-30); CHLORIDE 109 mmol/l (95-108); POTASSIUM 4.4 mmol/l (3.5-5.1); SODIUM 135 mmol/l (137-146)
[2019-09-17 05:45] LABS: BUN/CREATININE RATIO 31 (12-20 (CALC)); CREATININE 1.1 mg/dL (0.7-1.3); GFR > 60 ML/MIN (>=60 (CALC)); GFR FOR AFR.AMER. > 60 ML/MIN (>=60 (CALC))
[2019-09-17 05:48] LABS: HEMATOCRIT 41.9 % (39.0-50.0); HEMOGLOBIN 13.8 g/dl (14.0-18.0)
[2019-09-17 08:02] VITALS: BP 135/58
[2019-09-17 11:25] VITALS: BP 124/73
[2019-09-17 16:00] VITALS: BP 147/80
[2019-09-17] MEDS ORDERED: VANCOMYCIN HCL125 M1 PO (16:02)
== END 2019-09-17 17:00 | disposition home or self-care (01) | DRG 372 ==
LOC: ED 08:58 → ED-I 09:32 → ED 11:53 → MS2 11:54
PROVIDERS: Emergency Medicine; ADMIT Internal Medicine; ATTEND Internal Medicine
DX: A04.72 Enterocolitis due to Clostridium difficile, not specified as recurrent (principal); N17.9 Acute kidney failure, unspecified; A08.39 Other viral enteritis; E86.0 Dehydration; I10 Essential (primary) hypertension; I25.10 Atherosclerotic heart disease of native coronary artery without angina pectoris; E78.5 Hyperlipidemia, unspecified; M19.90 Unspecified osteoarthritis, unspecified site; F17.200 Nicotine dependence, unspecified, uncomplicated; Z95.5 Presence of coronary angioplasty implant and graft

== ENCOUNTER 2022-02-05 09:04 | Emergency (ER) | payer MEDICARE ==
[~2022-02-05] VITALS: Ht 170.2 cm; Wt 91.0 kg
[~2022-02-05 09:04] MED LIST changes: +VANCOMYCIN HCL125 M1 PO
[2022-02-05 10:20] LABS: URINE BILIRUBIN - DIPSTICK NEGATIVE (NEGATIVE); URINE BLOOD DIPSTICK NEGATIVE (NEGATIVE); URINE COLOR YELLOW; URINE GLUCOSE - DIPSTICK NEGATIVE (NEGATIVE); URINE KETONE NEGATIVE (NEGATIVE); URINE LEUK ESTERASE NEGATIVE (NEGATIVE); URINE PH 5.5 (4.5-8.0); URINE PROTEIN - DIPSTICK NEGATIVE (NEG-TRACE); URINE UROBILINOGEN - DIPSTICK 0.2 E.U./dL (0.2)
[2022-02-05 10:25] LABS: URINE NITRITE - DIPSTICK NEGATIVE (Negative)
[2022-02-05 10:30] LABS: ALBUMIN 4.3 g/dL (3.2-5.0); ALKALINE PHOSPHATASE 58 u/l (38-126); ANION GAP 12 (6-22 (CALC)); BILIRUBIN, TOTAL 0.5 mg/dL (0.0-1.4); BUN 19 mg/dL (8-23); BUN/CREATININE RATIO 16 (12-20 (CALC)); CARBON DIOXIDE 29 mmol/l (22-30); CHLORIDE 103 mmol/l (95-108); CREATININE 1.1 mg/dL (0.7-1.3); GFR FOR AFR.AMER. > 60 ML/MIN (>=60 (CALC)); GFR OTHER RACES > 60 ML/MIN (>=60 (CALC)); POTASSIUM 4.6 mmol/l (3.5-5.1); SGOT/AST 24 u/l (19-48); SODIUM 139 mmol/l (137-146); TOTAL PROTEIN 7.4 g/dL (6.3-8.2)
[2022-02-05 10:41] LABS: MYOGLOBIN 94 ng/mL (0 - 121)
[2022-02-05 10:52] LABS: HEMATOCRIT 47.8 % (39.0-50.0); HEMOGLOBIN 15.6 g/dl (14.0-18.0); IMMATURE GRANULOCYTES 0.3 % (0.0-5.0); MEAN CELL VOLUME 88.8 fL CALC (80.0-100.0); MEAN CORPUSCULAR HGB CONC 32.6 g/dL CAL (32.0-36.0); NEUT# 4.02 thou/uL (1.82-7.42); RED BLOOD COUNT 5.38 mill/uL (4.70-6.10); RED CELL DISTRI WIDTH 13.1 % (11.5-15.5)
[2022-02-05] MEDS ORDERED: KEFLEX500 MG PO (13:08)
[2022-02-05 13:37] VITALS: BP 1150/62
[2022-02-05] MEDS ORDERED: TESSALON PERLE100 MG PO (13:44)
== END 2022-02-05 13:50 | disposition home or self-care (01) ==
LOC: ED 09:04
PROVIDERS: Emergency Medicine
DX: U07.1 COVID-19 (principal); J06.9 Acute upper respiratory infection, unspecified; I10 Essential (primary) hypertension
CPT/HCPCS: Q9967